=== PATIENT | male | born 1985 | race African-American/Black ===

== ENCOUNTER 2019-05-30 14:07 | Emergency (ER) ==
[2019-05-30 14:19] VITALS: BP 154/98; TEMP 98.1; BMI 27.4
[2019-05-30] MEDS ORDERED: LIDOCAINE HCL 1% SDV IM STA (14:24)
[2019-05-30] MEDS ORDERED: CEFTRIAXONE 250 MG IM STA (14:24)
[2019-05-30] MEDS ORDERED: ZITHROMAX PO STA (14:24)
--- NOTE | 2019-05-30 14:25 | ED.PDOC ---
General ED Provider: Dr. ADELSO TOBAR Chief Complaint: Urinary Problem Stated Complaint: Patient is a 33 year old male who comes to the ER with complaints of Groin pain and pain with urination with cloudy white discharge for a week. Pt states he thinks he might have a STD. States his partner was treated for STD recently. Time Seen by Physician: 14:22 Mode of Arrival: Walk-In Information Source: Patient Nursing and Triage Documentation Reviewed and Agree: Yes Does patient meet sepsis criteria?: No System Inflammatory Response Syndrome: Not Applicable Sepsis Protocol: For patient's 13 years and over: Temp is 96.8 and below OR 101 and greater Pulse >90 BPM Resp >20/minute Acutely Altered Mental Status Are patient's symptoms suggestive of a new infection, such as: -Pneumonia -Skin, Soft Tissue -Endocarditis -UTI -Bone, Joint Infection -Implantable Device -Acute Abdominal Infection -Wound Infection -Meningitis -Blood Stream Catheter Infection -Unknown Complaint Exam - STD Male Complaint/Exam Onset/Duration: 1 week Symptoms Are: Still present Timing: Constant Initial Severity: Moderate Current Severity: Moderate Location: Reports: Penis Character: Recent STD exposure (with GC/CHLAMYDIA) Aggravating: Reports: Voiding Alleviating: Reports: None Associated Signs and Symptoms: Reports: Dysuria. Denies: Penile sores Related History: Reports: Similar episode, Prior STD Genitalia Exam: Present: Normal findings Differential Diagnoses: Urethritis, STD, UTI Review of Systems - Review Of Systems Constitutional: Reports: No symptoms Eyes: Reports: No symptoms Ears, Nose, Mouth, Throat: Reports: No symptoms Respiratory: Reports: No symptoms Cardiac: Reports: No symptoms GI: Reports: No symptoms : Reports: Dysuria, Discharge, Pain Musculoskeletal: Reports: No symptoms Skin: Reports: No symptoms Neurological: Reports: Anxiety Endocrine: Reports: No symptoms Hematologic/Lymphatic: Reports: No symptoms All Other Systems: Reviewed and Negative Past Medical History - Past Medical History Previously Healthy: Yes Endocrine: Reports: None Cardiovascular: Reports: None Respiratory: Reports: None Hematological: Reports: None Gastrointestinal: Reports: None Genitourinary: Reports: Other (History of Gohnorrhea ) Neuro/Psych: Reports: None Musculoskeletal: Reports: None Cancer: Reports: None - Surgical History General Surgical History: Reports: Hernia Repair - Family History Family History: Reports: Unknown - Social History Smoking Status: Current every day smoker Hx Substance Use: Yes (sirena) Alcohol Screening: Occasionally - Immunizations Tetanus Shot up to Date: Yes Physical Exam - Physical Exam Appearance: Well-appearing ENT: Oropharynx normal Respiratory: Airway patent Cardiovascular: RRR, Pulses normal, No rub, No murmur GI/: Soft, Nontender Musculoskeletal: Normal strength, ROM intact, No edema, No calf tenderness Skin: Warm, Dry, Normal color Neurological: Motor intact, Alert, Oriented Psychiatric: Anxious Critical Care Note - Critical Care Note Total Time (mins): 0 Course - Course Orders, Labs, Meds: Lab Review 05/30/19 13:45 Urine Color Yellow Urine Clarity Clear Urine pH 6.5 Ur Specific [place] >=1.030 Urine Protein Trace Urine Glucose (UA) Negative Urine Ketones Negative Urine Blood Negative Urine Nitrite Negative Urine Bilirubin Negative Urine Urobilinogen 0.2 Ur Leukocyte Esterase Negative Urine Microscopic RBC 0-2 Urine Microscopic WBC 0-2 Ur Squamous Epith Cells Not present Urine Bacteria Trace Urine Mucus 2+ Orders Category Date Time Status CHLAMYDIA/GC AMPLIFICATION Stat LAB 05/30/19 14:35 Received UA [URINALYSIS C & S IF INDICATED] Stat LAB 05/30/19 13:45 Completed Azithromycin [Zithromax] MEDS 05/30/19 14:24 Discontinued 1,000 mg PO ONCE STA Ceftriaxone 250 mg Vial [Rocephin 250 mg Vial] MEDS 05/30/19 14:24 Discontinued 250 mg IM ONCE STA Lidocaine HCl/Pf [Lidocaine HCl 1% Sdv] MEDS 05/30/19 14:24 Discontinued 0.9 ml IM ONCE STA Medications Discontinued Medications Generic Name Dose Route Start Last Admin Trade Name uLisq PRN Reason Stop Dose Admin Azithromycin 1,000 mg 05/30/19 14:24 05/30/19 14:35 Zithromax PO 05/30/19 14:25 1,000 mg ONCE STA Administration Ceftriaxone Sodium 250 mg 05/30/19 14:24 05/30/19 14:38 Rocephin 250 Mg Vial IM 05/30/19 14:25 250 mg ONCE STA Administration Lidocaine HCl 0.9 ml 05/30/19 14:24 05/30/19 14:38 Lidocaine Hcl 1% Sdv IM 05/30/19 14:25 0.9 ml ONCE STA Administration Vital Signs: Temp Pulse Resp BP Pulse Ox 05/30/19 14:08 98.1 F 75 18 154/98 H 98 Departure - Departure Time of Disposition: 15:20 Disposition: HOME SELF-CARE Discharge Problem: STD (sexually transmitted disease) Instructions: Sexually Transmitted Diseases (ED), Condom Use (ED), Safe Sex (ED ) Condition: Stable Pt referred to PMD for follow-up: Yes IPMP verified?: No Additional Instructions: Always Use condoms No sexual activity until symptoms are gone Allergies/Adverse Reactions: Allergies No Known Allergies Allergy (Verified 05/30/19 14:19) Home Medications: Ambulatory Orders 1 [No Reported Medications] 0 mg PO DAILY 05/19/13 Disposition Discussed With: Patient
== END 2019-05-30 15:25 | disposition home or self-care (01) ==
LOC: ED 14:07
DX: A64 Unspecified sexually transmitted disease (principal); F17.210 Nicotine dependence, cigarettes, uncomplicated
CPT/HCPCS: 36415; 81001; 87800; 96372; 99282